=== PATIENT | male | born 1995 | race Caucasian/White ===

== ENCOUNTER 2021-09-21 01:43 | Emergency (ER) | payer SELFPAY ==
[~2021-09-21] VITALS: Ht 177.8 cm; Wt 81.0 kg
[2021-09-21] MEDS ORDERED: RABIES VIRUS VACC PF 2.5 UNIT / 1 ML VIAL. VAX IM ONE (02:45)
[2021-09-21] MEDS ORDERED: RABIES IMMUNE GLOBULIN PF 300 UNIT/ML 5ML VIAL VAX IM ONE (03:00)
[2021-09-21] MEDS ORDERED: DIPHTH,PERTUSS(ACELL),TET TOX 0.5 ML DISP.SYRIN. VAX IM ONE (03:00)
[2021-09-21 03:27] VITALS: BP 137/81
--- NOTE | 2021-09-21 03:31 | RAD ---
Two-view left tibia-fibula HISTORY: Dog bite AP lateral views The visualized osseous structures appear normal. There is no radiopaque foreign body. IMPRESSION: No acute findings. Electronically signed by: Ian Birch III, MD (09/21/2021 3:29 AM) [facility]
[2021-09-21] MEDS ORDERED: AMOX1TAB61 PO (04:06)
--- NOTE | 2021-09-21 04:06 | PHYS DOC ---
Past Medical History Past Surgical History: Appendectomy, Tonsillectomy, Other Additional Past Surgical Histo: TUBES, ADNOIDS, TONSILS REMOVED Smoking Status: Never Smoker Alcohol Use: None General Adult EDM: Chief Complaint: ANIMAL BITE HPI: HPI: Patient is a 26 year old male with no significant past medical history who presents to the emergency department today after suffering a dog bite. Patient states he was leaving a friend's house tonight when a large white dog jumped on him. He states he pushed the dog away and he turned and the dog bit him in the back of the leg. He denies any other injury. He is last tetanus shot was in 2017. He is unsure about vaccination status. Review of Systems: Review of Systems: Constitutional: Denies fever or chills. [] Eyes: Denies change in visual acuity. [] HENT: Denies nasal congestion or sore throat. [] Respiratory: Denies cough or shortness of breath. [] Cardiovascular: Denies chest pain or edema. [] GI: Denies abdominal pain, nausea, vomiting, bloody stools or diarrhea. [] : Denies dysuria. [] Musculoskeletal: Denies back pain or joint pain. [] Integument: Denies rash. [] Neurologic: Denies headache, focal weakness or sensory changes. [] Endocrine: Denies polyuria or polydipsia. [] Lymphatic: Denies swollen glands. [] Psychiatric: Denies depression or anxiety. [] Heart Score: C/O Chest Pain: No Family History: Family History: Noncontributory Current Medications: Current Medications Medications (Trade) Dose Ordered Sig/Breezy Start Time Stop Time Status Last Admin Dose Admin Diphtheria/ Tetanus/Acell Pertussis (Boostrix) 0.5 ml ONCE ONCE 09/21/21 03:00 09/21/21 03:01 DC 09/21/21 03:10 0.5 ML Rabies Immune Globulin (HyperRAB 300 UNIT/ML 5ML VIAL) 5.4 ml ONCE ONCE 09/21/21 03:00 09/21/21 03:01 DC 09/21/21 03:24 5 ML Rabies Vaccine (Imovax,Rabavert Rabies 2.5 Unit / ml) 1 ml ONCE ONCE 09/21/21 02:45 09/21/21 02:47 DC 09/21/21 03:13 1 ML Allergies: Allergies: Allergies Coded Allergies Type Severity Reaction Last Updated Verified No Known Drug Allergies 09/21/21 No Physical Exam: PE: Constitutional: Well developed, well nourished, no acute distress, non-toxic appearance. [] HENT: Normocephalic, atraumatic, bilateral external ears normal, oropharynx moist, no oral exudates, nose normal. [] Eyes: PERRLA, EOMI, conjunctiva normal, no discharge. [] Neck: Normal range of motion, no tenderness, supple, no stridor. [] Cardiovascular:Heart rate regular rhythm, no murmur [] Lungs & Thorax: Bilateral breath sounds clear to auscultation [] Abdomen: Bowel sounds normal, soft, no tenderness, no masses, no pulsatile masses. [] Skin: Warm, dry, no erythema, no rash. 2 small puncture wounds to the posterior left tib-fib. Back: No tenderness, no CVA tenderness. [] Extremities: No tenderness, no cyanosis, no clubbing, ROM intact, no edema. [] Neurologic: Alert and oriented X 3, normal motor function, normal sensory function, no focal deficits noted. [] Psychologic: Affect normal, judgement normal, mood normal. [] Current Patient Data: Vital Signs: Vital Signs Date Time Temp Pulse Resp B/P (MAP) Pulse Ox O2 Delivery O2 Flow Rate FiO2 09/21/21 02:15 98.0 98 20 121/79 (93) 100 Room Air 98.0 EKG: EKG: [] Radiology/Procedures: Radiology/Procedures: Two-view left tibia-fibula HISTORY: Dog bite AP lateral views The visualized osseous structures appear normal. There is no radiopaque foreign body. IMPRESSION: No acute findings. Electronically signed by: Ian Birch III, MD (09/21/2021 3:29 AM) [facility] Impression: Dog bite left tib-fib Course & Med Decision Making: Course & Med Decision Making Patient remained hemodynamically stable in the emergency department. He was evaluated at the bedside with a physical exam. Plain films of the left tib-fib show no evidence of any foreign body. Patient's Tdap was updated here in the emergency department. Patient initially had no information on the dog's vaccination status therefore he was given a rabies vaccine. Prior to receiving RIG patient's friends called and said the dog belonged to a neighbor who stated that his vaccines were up-to-date. Therefore I do not think RID is necessary at this time. He was given a dose of Augmentin here in emergency department. Will be discharged with Augmentin and told to follow-up with his PCP. Tiana Disclaimer: Tiana Disclaimer: This electronic medical record was generated, in whole or in part, using a voice recognition dictation system. Departure Departure Impression: Primary Impression: Dog bite of left lower leg Disposition: HOME / SELF CARE / HOMELESS Condition: IMPROVED Referrals: PRESLEY PONCE MD (PCP) Patient Instructions: Animal Bite Scripts Amoxicillin/Potassium Clav (AUGMENTIN 875-125 TABLET) 1 Each Tablet 1 TAB PO BID for 7 Days, #14 TAB 0 Refills Prov: ABY BOWMAN MD 09/21/21 ABY BOWMAN MD September 21, 2021 04:06
[2021-09-21] MEDS ORDERED: AMOXICILLIN/K CLAV 875/125MG TABLET. PO ONE (04:15)
== END 2021-09-21 04:30 | disposition home or self-care (01) ==
LOC: ER 01:43
DX: S81.832A Puncture wound without foreign body, left lower leg, initial encounter (principal); W54.0XXA Bitten by dog, initial encounter; Y93.89 Activity, other specified; Y92.89 Other specified places as the place of occurrence of the external cause; Y99.8 Other external cause status
CPT/HCPCS: 73590; 90375; 90471; 90472; 90675; 90715; 99284-25